=== PATIENT | female | born 1950 | race Caucasian/White ===

== ENCOUNTER 2021-11-19 07:26 | Observation (INO) ==
--- NOTE | 2021-10-24 14:11 | History & Physical Report ---
Date of Service October 24, 2021 date of surgery: 11/19/21 Procedure: Left Total Knee Arthroplasty Surgeon: Jalen Snow Assessment & Plan (1) Arthritis of knee, left: Plan: presents w increased pain in her left knee, her xrays were reviewed showing advancing djd of her left knee, she has had prior right knee TKA and revision TKA several years later. we discussed risks and benefits of procedure, she would like to proceed with stephanie block Left TKA at [facility]. will plan on OPJ program, will schedule for Iovera treatment 2 weeks prior to her surgery. her daughter will stay with her for several days after her surgery as well. The risks and benefits have been discussed including, but not limited to, risk of infection, nerve injury, stiffness, loss of motion, failure to improve, etc. Reasonable outcomes and options of treatment were discussed. An explanation of appropriate alternatives to the procedure that may be advantageous were discussed and their risks and benefits, as well as the risks and benefits of not proceeding with treatment. I offered to answer any additional inquiries concerning the treatment involved. All the patient's questions were answered. The patient is agreeable, understanding of the treatment plan and alternatives, and wishes to proceed with the treatment plan. History of Present Illness Chief Complaint: left knee pain Primary Care Provider: Rishabh M. Nely Rivera is a 71 year old female who complains of left knee pain, presents for pre-op evaluation prior to a left total knee replacement by Dr Snow at [facility]. she complains of pain, decreased range of motion and stiffness in the left knee. Currently the patient states that the symptoms are moderate-severe and is de scribed as aching, sharp and throbbing. pain is rated as 7/10. Her symptoms are aggravated by ascending stairs, daily activities, first steps while awake walking. Prior NSAIDs include IBU and Aleve. she has been treated with previous Iovera injection. Allergies Allergy/AdvReac Type Severity Reaction Status Date / Time ciprofloxacin [Cipro] Allergy Intermediate HANDS Verified 07/17/21 13:19 BURNING RED, RASH, HANDS PEELED SKIN Home Medications Medication Instructions Recorded Confirmed Type alendronate 70 mg tablet 70 mg PO WK 07/17/21 07/17/21 History alprazolam 0.5 mg tablet 0.5 mg PO HS 07/17/21 07/17/21 History ascorbic acid 7.5 mg-vit E 7.5 1 tab PO BID 07/17/21 07/17/21 History unit-biotin 1,250 mcg chewable tablet (Hair,Skin,Nails with Biotin) betamethasone dipropionate 0.05 % 1 applic TOPICAL DAILY PRN 07/17/21 07/17/21 History topical cream calcium carbonate 600 mg-vitamin 1 tab PO BID 07/17/21 07/17/21 History D3 10 mcg (400 unit) tablet (Calcium 600 + D(3)) conjugated estrogens 0.625 mg/gram 0.625 mg VAGINAL 3XWK 07/17/21 07/17/21 History vaginal cream (Premarin) hydrocortisone 0.25 % topical cream 1 applic TOPICAL DAILY PRN 07/17/21 07/17/21 History ibuprofen 400 mg tablet 400 mg PO QAM 07/17/21 07/17/21 History latanoprost (PF) 0.005 % eye drops 1 drp OPHTHALMIC (EYE) HS 07/17/21 07/17/21 History levothyroxine 75 mcg tablet 75 mcg PO QAM 07/17/21 07/17/21 History rrfcbodunxkz-Ey-usfz-minerals 18 1 tab PO QAM 07/17/21 07/17/21 History mg-0.4 mg tablet Past Med/Surg History Medical History Frequent UTI Glaucoma bilt eyes Hypothyroidism Insomnia due to anxiety and fear Osteoarthritis Osteoporosis Surgical History History of arthroscopy of right knee History of breast biopsy benign History of colonoscopy History of hand surgery left and right index fingers History of partial hysterectomy History of repair of right rotator cuff History of tonsillectomy and adenoidectomy History of total right knee replacement (TKR) x2 History of wisdom tooth extraction Family History Other No family history of adverse response to anesthesia Social History Smoking Status: Never smoker Second Hand Exposure: No; Hx Alcohol Use: Yes Hx Substance Use: No Preferred Language: Ukrainian Communication Ability: Effective 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 Beliefs That Will Affect Care: None Current Living Situation: Alone Feels Safe at Home: Yes Assistive Devices: Glasses Review of Systems Review of Systems: All systems reviewed & are unremarkable except as noted in HPI & below Constitutional: no fever, no chills and no sweats Respiratory: no cough and no dyspnea Cardiovascular: no chest pain, no dyspnea and no orthopnea Gastrointestinal: no abdominal pain, no nausea and no vomiting Musculoskeletal: as per Subjective / HPI Physical Exam Physical Exam: HT: 5ft 6in WT: 84.9kg BP: 122/76 Constitutional: WD/WN, vitals as above no acute distress Respiratory: normal respiratory effort, lungs clear to auscultation no respiratory distress, no labored breathing and does not use accessory muscles Cardiovascular: RRR, no murmur, no edema Gastrointestinal (Abdomen): normal bowel sounds, soft, nontender, no hepatosplenomegaly Musculoskeletal: Knee: + knee abnormal to inspection (Left knee: ), + effusion (+1 effusion), + surgical incision (well healed portals), + limited ROM of knee (ROM 0/3/110), + knee ROM with crepitation, + joint line tenderness (medial joint line) and + Leslye's sign positive; no deformity, no skin erythema, no ecchymosis, no valgus laxity, no varus laxity, anterior drawer test negative, Kelley's sign negative and pivot shift test negative Results & Data Results & Data ([facility]) Diagnostic Findings Left Knee X-ray: left knee series confirm advanced degenerative changes to the left knee, greatest medial compartments and patellofemoral joint, showing joint space narrowing, osteophyte formation and subchondral sclerosis. no acute bony pathology noted.
--- NOTE | 2021-11-11 16:10 | Anesthesiology Consultation ---
Date of Service November 11, 2021 Assessment & Plan (1) Encounter for pre-operative examination: - COVID screening: Per assessment on 10/28: No known COVID-19 positive contacts or current COVID-19 related symptoms. Travel screen negative. Patient vaccinated. Surgeon arranging preop COVID testing. Awaiting results. - Chronic LBBB: Patient was originally scheduled for 08/20/21. Preop EKG done 07/19/21 showed LBBB/cannot r/o septal infarct. Message sent to PCP for comment. Per PCP response, ""...had LBBB in 2007 and negative nuclear stress test at that time..." Preop EKG[facility]cardiac [facility] with Dr. Arteaga 07/2021 in which patient was felt to be acceptable risk for surgery without further cardiac evaluation and/or testing from his perpective. Chart Review Chart Review: Acceptable Risk for Surgery (pending evlauation AM DOS) and Patient NOT seen in Pre Admission Testing History Surgery Operation Date: 11/19/21 09:25 Proposed Procedures p Left Total Knee Arthroplasty - Jalen Snow DO Height/Weight Height: 5 ft 6 in Weight: 81.647 kg Allergies Allergy/AdvReac Type Severity Reaction Status Date / Time ciprofloxacin [Cipro] Allergy Intermediate HANDS Verified 10/28/21 10:25 BURNING RED, RASH, HANDS PEELED SKIN Medications Home Medications Medication Instructions Recorded Confirmed Last Taken alendronate 70 mg tablet 70 mg PO WK 07/17/21 10/28/21 Unknown alprazolam 0.5 mg tablet 0.5 mg PO HS 07/17/21 10/28/21 Unknown ascorbic acid 7.5 mg-vit E 7.5 1 tab PO BID 07/17/21 10/28/21 Unknown unit-biotin 1,250 mcg chewable tablet (Hair,Skin,Nails with Biotin) betamethasone dipropionate 0.05 % 1 applic TOPICAL DAILY PRN 07/17/21 10/28/21 Unknown topical cream calcium carbonate 600 mg-vitamin 1 tab PO BID 07/17/21 10/28/21 Unknown D3 10 mcg (400 unit) tablet (Calcium 600 + D(3)) conjugated estrogens 0.625 mg/gram 0.625 mg VAGINAL WK 07/17/21 10/28/21 Unknown vaginal cream (Premarin) hydrocortisone 0.25 % topical cream 1 applic TOPICAL DAILY PRN 07/17/21 10/28/21 Unknown ibuprofen 400 mg tablet 400 mg PO QAM 07/17/21 10/28/21 Unknown latanoprost (PF) 0.005 % eye drops 1 drp OPHTHALMIC (EYE) HS 07/17/21 10/28/21 Unknown levothyroxine 75 mcg tablet 75 mcg PO QAM 07/17/21 10/28/21 Unknown vmltrstwpdfy-Ya-jwjy-minerals 18 1 tab PO QAM 07/17/21 10/28/21 Unknown mg-0.4 mg tablet clobetasol-emollient 0.05 % 1 applic TOPICAL 2XWK 10/28/21 10/28/21 Unknown topical cream d-mannose 500 mg capsule 500 mg PO QAM 10/28/21 10/28/21 Unknown Past Medical History Medical History Frequent UTI No current issues Glaucoma B/L eyes Hypothyroidism Insomnia due to anxiety and fear Osteoarthritis Osteoporosis Past Family History Family History Other No family history of adverse response to anesthesia Past Surgical History Surgical History History of arthroscopy of right knee History of breast biopsy benign History of colonoscopy History of hand surgery left and right index fingers History of partial hysterectomy History of repair of right rotator cuff History of tonsillectomy and adenoidectomy History of total right knee replacement (TKR) x2 History of wisdom tooth extraction Social History Smoking Status: Never smoker Do You Dip or Chew Tobacco: No Hx Alcohol Use: Yes Alcohol type: wine and hard liquor alcohol intake frequency: holidays/special occasions only Hx Substance Use: No substance use type: does not use Testing Laboratory Results 10/22/21 WBC 5.60 H/H 14.7/45.5 PLATELETS 235 SODIUM 140 POTASSIUM 4.1 CHLORIDE 106 CO2 27.9 BUN 16.7 CREATININE 0.81 GLUCOSE 86 PT 11.2 PTT 32.0 INR 0.99 UA negative HGBA1C 5.2% Electrocardiogram Date: 07/19/21 Normal sinus rhythm at 79 bpm. LBBB. Cannot rule out septal infarct (cited on or before 07/19/2021). No significant change compared to 02/17/2014 per home office claims examiner review. Blood stress test was done 08/19/2007 for evaluation of left bundle branch block. Per report, there are changes to the septum most likely related to artifact. There are no ischemic changes. There is decreased wall motion of the septum. The remaining findings are normal. Chest X-Ray Date: 07/19/21 FINDINGS: PA and lateral chest radiographs are compared to study dated 02/17/2014. The cardiomediastinal silhouette is unremarkable noting atherosclerotic calcification of the thoracic aorta. The lungs and pleural spaces are clear. There is no pneumothorax. The skeletal structures are osteopenic. The bony thorax appears intact. IMPRESSION: No active disease in the chest. Stress Test Date: 08/19/07 Per report, there are changes to the septum most likely related to artifact. There are no ischemic changes. There is decreased wall motion of the septum. The remaining findings are normal. EF 59%.
[~2021-11-19 07:26] MED LIST: ACETAMINOPHEN 500 MG TAB PO SCH; BUPIVACAINE 0.25% 30 ML VIAL ONE; BUPIVACAINE 0.5 % 5 MG/1 ML PF 10ML VIAL ONE; CeleBREX 200 MG CAP PO SCH; FAMOTIDINE 20 MG TAB PO SCH; GABAPENTIN 300 MG CAP PO SCH; LR 500ML BOLUS, THEN 15ML/HR IV SCH; METOCLOPRAMIDE HCL 10 MG TABLET PO SCH; ROPIVACAINE 0.5% HCL/PF 150 MG, BUPIVACAINE 0.75% MPF 20 ML, EPINEPHrine 30MG/30ML (OR ... INSTIL SCH; TRANEXAMIC ACID 1,000 MG **IV Intra-op IV SCH; TRANEXAMIC ACID 1,000 MG **IV Pre-op IV SCH; VANCOMYCIN HCL 1,250 MG in SODIUM CHLORIDE 0.9% 250 ML IV SCH; dexAMETHasone 4 MG TAB PO SCH; oxyCODONE HCL 10 MG TABCR (OxyCONTIN) PO SCH
[2021-11-19] MEDS ORDERED: fentaNYL citrate 100 MCG/2 ML VIAL ONE (07:54)
[2021-11-19] MEDS ORDERED: PROPOFOL IV EMULSION 10 MG/ML 20 ML VIAL IV ONE (07:54)
[2021-11-19] MEDS ORDERED: LIDOCAINE 2% 2 ML VIAL/AMP(20MG/ML) INFIL ONE (07:54)
[2021-11-19] MEDS ORDERED: ePHEDrine sulfate 50 MG/ML SYR ONE (07:54)
[2021-11-19] MEDS ORDERED: MIDAZOLAM HCL 1 MG/ML 2ML VIAL ONE (07:54)
--- NOTE | 2021-11-19 08:31 | History & Physical Bridge Note ---
Date of Service November 19, 2021 History & Physical Bridge Note I have examined the patient, reviewed the History & Physical and in the interval since the performance of the History & Physical I have noted the following changes of clinical significance: no changes noted
[2021-11-19] MEDS ORDERED: ORTHO JOINT ANESTHETIC ONE (09:01)
[2021-11-19] MEDS ORDERED: ATROPINE SULFATE 0.1 MG/ML 10ML SYR IV PRN (10:25)
[2021-11-19] MEDS ORDERED: ePHEDrine sulfate 50 MG/ML AMP IV PRN (10:25)
[2021-11-19] MEDS ORDERED: ONDANSETRON INJ 2 MG/ML 2 ML VIAL IV PRN ×2 (10:25→12:23)
--- NOTE | 2021-11-19 11:02 | Operative Report ---
Post Operative Report Pre & Post Diagnosis Operation Date: 11/19/21 09:35 Pre-Op Diagnosis: Left Knee Osteoarthritis Post-Op Diagnosis: Left Knee Osteoarthritis I identified the patient and participated in the time-out.: Yes Procedure Operation Date: 11/19/21 09:35 Actual Procedures p Left Total Knee Arthroplasty(Left) utilizing [employer] persona patient matched femur 9 narrow tibia EE polyten medial constrained patella 31 oval Jalen Snow DO Surgeon Jalen Snow DO Street Light Servicer VINICIO Mota Estimated Blood Loss 5 Findings Consistent with Post-Op Diagnosis Patient presents with left knee severe DJD tricompartmentally with subchondral sclerosis marginal osteophytes subchondral cystic changes valgus alignment 10 degree flexion contracture and moderate to large effusion Specimens Bone and cartilage Drains Medium bore Hemovac Anesthesia Type MAC Spinal Regional Complications none Disposition Accompanied Patient To Recovery: No Disposition: Recovery Room Indications Patient presents with severe end-stage tricompartmental degenerative joint disease after failed attempted conservative management clinic physical therapy anti-inflammatories relative rest activity modification patient is also had anterior articular corticosteroid and viscosupplementation the above intraoperative findings were noted Description of Procedure After proper prepping and draping of the left lower extremity anterior midline incision was made over the region of the extensor extensor mechanism after meticulous hemostasis was obtained and maintained in subcutaneous tissues a medial parapatellar incision was made The patella was subluxed lateralward the medial lateral gutter were cleaned from any hypertrophic synovitis and scar tissue of the distal femoral block was placed and the distal femoral osteotomy cut was made subsequently the chamfers anterior and posterior osteotomy cuts w ere made utilizing the 4-in-1 block the tibia was subsequently subluxed anteriorward medial and ateral meniscal remnants were excised in their entirety remnants of the anterior and posterior cruciate ligaments were excised in their entirety excellent exposure of the proximal tibia was obtained the tibial osteotomy guide was placed on the proximal tibial osteotomy cut was made once again the knee was irrigated with copious amounts of sterile saline solution the patella was subsequently everted lateralward thickened scar tissue around the patella was removed the patella was subsequently cut utilizing a freehand technique and was drilled prepared for final preparation and placement of patella socially flexion-extension gaps were checked and the equal and symmetric trials were placed to the appropriate femoral and tibial trials with poly-spacer being placed for equal flexion and extension gaps and full range of motion including extension to 0 and flexion to 140 the trial components after having been taken to recovery range of motion was subsequently removed meticulous hemostasis was obtained and maintained subsequently a knee block injection of joint cocktail including ropivacaine 0.5% 150 mg. Bupivacaine 0.5% epinephrine 1-200,030 mL's toradol 30 mg dexamethasone 4 mg ketamine 10 mg clonidine 100 micrograms normal saline solution 30 mg was infiltrated into the soft tissues of the posterior knee medial lateral gutters and periosteal synovium special attention was paid to protect neurovascular structures at all times subsequently trial components having been removed the knee was irrigated with sterile saline solution. debris was removed the proximal tibia was subsequently prepared and was made ready for the placement of the tibial component tibial component was also cemented and tamped into position the femoral component was subsequently placed and cemented in the position the patellar component was subsequently cemented in position because hemostasis once again obtained and maintained wound having been thoroughly irrigated with debridement and debridement lavage was performed as well as a medial parapatellar incision closed with #1 Vicryl in interrupted fashion subcutaneous was closed with #2 Vicryl skin was closed with skin clips. PA-C was necessary for prepping and drapping as well as wound closure of deep fascia Sub cutaneous tissue and skin and was necessary for the case. A sterile compressive dressing was placed patient was taken to recovery in stable condition of report dictated by Edy I attest to the content of the Intraoperative Record and any orders documented therein. Any exceptions are noted below.Due to the complex nature of the procedure, the entire surgery was performed with the operational assistance of VINICIO Matamoros The mail handler assistant, under direct supervision, was involved in the actual performance of all aspects of the surgical procedure including hemostasis, tissue retraction and incision, instrument management, patient positioning, and wound closure. I attest to the content of the Intraoperative Record and any orders documented therein. Any exceptions are noted below.
--- NOTE | 2021-11-19 12:06 | XRay Report ---
TWO VIEWS LEFT KNEE CLINICAL HISTORY: Postoperative examination. FINDINGS: AP and crosstable lateral portable views of the left knee are obtained. A left knee arthrop lasty is in near anatomic alignment. There has been undersurface remodeling of the patella. No acute fracture is seen. There are expected postoperative changes around the knee including a surgical drai n, soft tissue edema, and subcutaneous gas. IMPRESSION: Expected postoperative changes status post left knee arthroplasty. No acute fracture is s een. ACT 112: Negative or not required by law. Electronically signed by: Woodrow Ansari M.D. 11/19/2021 12:03 PM
[2021-11-19] MEDS ORDERED: HYDROmorphone INJ 1 MG/ML SYRINGE IV PRN (12:23)
[2021-11-19] MEDS ORDERED: diphenhydrAMINE Capsule 25 MG CAP PO PRN (12:23)
[2021-11-19] MEDS ORDERED: MAGNESIUM HYDROXIDE SUSP 30 ML UDC PO PRN (12:23)
[2021-11-19] MEDS ORDERED: oxyCODONE HCL IR 5 MG TAB (IMMEDIATE RELEASE) PO PRN (12:23)
[2021-11-19] MEDS ORDERED: bisacodyL 10 MG SUPP PR PRN (12:23)
[2021-11-19] MEDS ORDERED: NALOXONE HCL 0.4 MG/1 ML VIAL/CARP IV PRN (12:23)
[2021-11-19] MEDS ORDERED: METOCLOPRAMIDE HCL INJ 5 MG/ML 2 ML VIAL IV PRN (12:23)
[2021-11-19] MEDS ORDERED: HYDROCORTISONE TOP PRN (12:23)
--- NOTE | 2021-11-19 12:40 | Anesthesiology Progress Note ---
Date of Service November 19, 2021 Anesthesia Post Procedure Vital Signs Vital Signs: Temp Pulse Pulse Resp BP BP Pulse Ox 11/19/21 12:21 36.4 C L 92 H 16 112/73 95 11/19/21 12:10 36.3 C L 90 18 113/62 93 11/19/21 12:00 93 H 16 110/62 97 11/19/21 11:50 88 17 99/71 L 99 11/19/21 11:40 36.9 C 97 H 15 102/50 L 99 11/19/21 08:10 36.4 C L 90 20 146/83 H 99 Transfer of Care Handoff Completed per policy Notes Mental Status: alert / awake / arousable Patient Amnestic to Procedure: Yes Nausea / Vomiting: adequately controlled Pain: adequately controlled Airway Patency, RR, SpO2: stable & adequate BP & HR: stable & adequate Hydration State: stable & adequate Neuraxial Anesthesia: was administered and sensory block is resolving Anesthetic Complications: no major complications apparent and Pt Satisfied with anesthetic care
[2021-11-19] MEDS ORDERED: BETAMETHASONE DIP AUG (DIPROLENE) 0.05% CR 15 GM TUBE EXT PRN (13:19)
[2021-11-19] MEDS: SODIUM CHLORIDE 0.9% 1000ML 1,000 ML IV SCH ×2 (13:34→23:51)
[2021-11-19] MEDS: KETOROLAC TROMETHAMINE 15 MG/ML VIAL IV SCH ×2 (14:28→18:35)
[2021-11-19] MEDS: ACETAMINOPHEN 500 MG TAB PO SCH ×2 (15:15→21:23)
[2021-11-19] MEDS: ceFAZolin 2000MG 2,000 MG/15 ML SYR IV SCH (18:38)
[2021-11-19] MEDS ORDERED: SENNA 8.6 MG TAB PO SCH (21:00)
[2021-11-19] MEDS ORDERED: ALPRAZolam 0.5 MG TABLET PO SCH (21:00)
[2021-11-19] MEDS ORDERED: LATANOPROST 0.005% OP SOLN 2.5 ML BTL OP SCH (21:00)
[2021-11-19] MEDS: DOCUSATE SODIUM 100 MG CAP PO SCH (21:25)
[2021-11-19] MEDS: CALCIUM CARBONATE 1250MG TAB PO SCH (21:26)
[2021-11-19] MEDS: ASPIRIN 81 MG ECTAB PO SCH (21:26)
[2021-11-19] MEDS: CHOLECALCIFEROL 400 UNITS 10 MCG TAB PO SCH (21:27)
[2021-11-20] MEDS: KETOROLAC TROMETHAMINE 15 MG/ML VIAL IV SCH ×2 (00:01→05:45)
[2021-11-20] MEDS: ceFAZolin 2000MG 2,000 MG/15 ML SYR IV SCH (02:13)
[2021-11-20] MEDS: ACETAMINOPHEN 500 MG TAB PO SCH ×2 (05:46→13:46)
[2021-11-20] MEDS ORDERED: LEVOTHYROXINE SODIUM 75 MCG TABLET PO SCH (06:30)
[2021-11-20 06:33] LABS: Hematocrit (blood only) 35.9 % (37-47); Mean Corpuscular Hemoglobin 31.1 pg (25-34); Mean Corpuscular Hgb Conc 33.4 g/dL (32-36); Platelet Count 211 K/uL (130-400); RDW Coefficient of Variation 12.7 % (11.5-14.5); Red Blood Count 3.86 M/uL (4.2-5.4); White Blood Count 13.93 K/uL (4.8-10.8)
[2021-11-20 07:04] LABS: Calcium 8.8 mg/dl (8.5-10.1); Creatinine Clr Calc Pharmacy 92.4 ml/min; Est GFR (African American) 106.5 ml/min; Est GFR (Non-African American) 91.9 ml/min; Potassium 4.6 mmol/L (3.5-5.1)
--- NOTE | 2021-11-20 08:04 | Orthopedic Progress Note ---
Date of Service November 20, 2021 Assessment & Plan (1) Arthritis of knee, left: Plan: Postop day 1 status post left total knee arthroplasty. PT/OT protocols. Weightbearing as tolerated. DVT prophylaxis-aspirin p.o. twice daily, Nidhi, LIZZETH min. Pain management as written. DC plans-is planning for home health services upon discharge. We will see how she progresses today with her physical therapy. Possible discharge to home this afternoon. Admission and Anticipated Discharge Date Admission Date: November 19, 2021 Subjective Postop day 1 Patient is sitting up in her bed awake and alert. No complaints this morning. Pain is controlled. She denies shortness of breath, chest pain, lightheadedness. Physical Exam Physical Exam: Dressings are clean, dry, and intact. Calves are soft and nontender. Neurovascular is intact. Toes are mobile. She has good dorsiflexion and plantarflexion of her left foot. She had 150 cc out of her Hemovac drain from the previous shift. Results & Data ([facility]) Vital Signs (Past 12 Hours) Vital Signs Temp Pulse Resp BP Pulse Ox 11/20/21 02:08 36.5 C 81 16 106/66 99 11/19/21 22:32 36.6 C 80 16 107/66 97 Laboratory Results Laboratory Results WBC 13.93 K/uL (4.8-10.8) H 11/20/21 06:05 RBC 3.86 M/uL (4.2-5.4) L 11/20/21 06:05 Hgb 12.0 g/dL (12.0-16.0) 11/20/21 06:05 Hct 35.9 % (37-47) L 11/20/21 06:05 MCV 93.0 fL (80-100) 11/20/21 06:05 MCH 31.1 pg (25-34) 11/20/21 06:05 MCHC 33.4 g/dL (32-36) 11/20/21 06:05 RDW Std Deviation 43.0 fL (36.4-46.3) 11/20/21 06:05 RDW Coeff of Vicki 12.7 % (11.5-14.5) 11/20/21 06:05 Plt Count 211 K/uL (130-400) 11/20/21 06:05 MPV 10.0 fL (7.4-10.4) 11/20/21 06:05 Sodium 141 mmol/L (136-145) 11/20/21 06:05 Potassium 4.6 mmol/L (3.5-5.1) 11/20/21 06:05 Chloride 112 mmol/L (98-107) H 11/20/21 06:05 Carbon Dioxide 24 mmol/L (21-32) 11/20/21 06:05 Anion Gap 5 (3-11) 11/20/21 06:05 BUN 14 mg/dl (6-23) 11/20/21 06:05 Creatinine 0.61 mg/dl (0.6-1.2) 11/20/21 06:05 Est Cr Clr Drug Dosing 92.4 ml/min 11/20/21 06:05 Est GFR ( Amer) 106.5 ml/min 11/20/21 06:05 Est GFR (Non-Af Amer) 91.9 ml/min 11/20/21 06:05 BUN/Creatinine Ratio 23.0 (10-20) H 11/20/21 06:05 Glucose 111 mg/dl (70-99(Fasting)) H 11/20/21 06:05 Calcium 8.8 mg/dl (8.5-10.1) 11/20/21 06:05 SARS-CoV-2, RNA, NAAT NEGATIVE (NEGATIVE) 11/19/21 07:45 Blood Type O Positive 11/19/21 07:44 Antibody Screen NEGATIVE 11/19/21 07:44 Impressions Knee X-Ray 11/19/21 11:45 TWO VIEWS LEFT KNEE CLINICAL HISTORY: Postoperative examination. FINDINGS: AP and crosstable lateral portable views of the left knee are obtained. A left knee arthroplasty is in near anatomic alignment. There has been undersurface remodeling of the patella. No acute fracture is seen. There are expected postoperative changes around the knee including a surgical drain, soft tissue edema, and subcutaneous gas. IMPRESSION: Expected postoperative changes status post left knee arthroplasty. No acute fracture is seen. ACT 112: Negative or not required by law. Electronically signed by: Woodrow Ansari M.D. 11/19/2021 12:03 PM
[2021-11-20] MEDS ORDERED: CeleBREX 200 MG CAP PO SCH (09:00)
[2021-11-20] MEDS ORDERED: MULTIVITAMIN TAB PO SCH (09:00)
[2021-11-20] MEDS: DOCUSATE SODIUM 100 MG CAP PO SCH (09:01)
[2021-11-20] MEDS: CHOLECALCIFEROL 400 UNITS 10 MCG TAB PO SCH (09:02)
[2021-11-20] MEDS: ASPIRIN 81 MG ECTAB PO SCH (09:02)
[2021-11-20] MEDS: CALCIUM CARBONATE 1250MG TAB PO SCH (09:03)
--- NOTE | 2021-11-20 13:23 | Discharge Summary ---
Date of Service date of discharge: November 20, 2021 date of admission: 11/19/21 Admission HPI Per Admitting Provider Nicole is a 71 year old female who complains of left knee pain, presents for pre-op evaluation prior to a left total knee replacement by Dr Snow at [facility]. she complains of pain, decreased range of motion and stiffness in the left knee. Currently the patient states that the symptoms are moderate-severe and is described as aching, sharp and throbbing. pain is rated as 7/10. Her symptoms are aggravated by ascending stairs, daily activities, first steps while awake walking. Prior NSAIDs include IBU and Aleve. she has been treated with previous Iovera injection. Principal Diagnosis left knee arthritis Discharge Exam Musculoskeletal left knee: NVDI, calf SNT, negative verito sign. DP palpable, able to wiggle toes/ankle movement without difficulty. VICKEY dressing clean dry and intact. expected post-operative bruising noted. Discharge Data Allergies Allergy/AdvReac Type Severity Reaction Status Date / Time ciprofloxacin [Cipro] Allergy Intermediate HANDS Verified 10/28/21 10:25 BURNING RED, RASH, HANDS PEELED SKIN Procedures Performed Operation Date: 11/19/21 09:35 Actual Procedures p Left Total Knee Arthroplasty(Left) - Jalen Snow DO Ordered Studies 11/19/21 05:00 US - OR guided needle placemen Routine Hospital Course (1) Arthritis of knee, left: Postop day 1 status post left total knee arthroplasty. PT/OT protocols. Weightbearing as tolerated. DVT prophylaxis-aspirin p.o. twice daily, SCDs, LIZZETH min. Pain management as written. DC plans-is planning for home health services upon discharge. We will see how she progresses today with her physical therapy. Possible discharge to home this afternoon. Total Time Total Time Spent Total Time Spent (In Minutes): 20 Discharge Plan Discharge Items Patient Disposition: Home - Home Health Services Reason For Visit: Left Knee Osteoarthritis Discharge Diagnosis: LEFT TOTAL KNEE REPLACEMENT Activity: Per Instructions section Lifting: Wait until after follow-up appointment Weightbearing: Left weightbearing Weightbearing Comment: WBAT WITH WALKER Non-emergency contact: Surgeon Call non-emergency contact if: you have any medication questions, your pain is not controlled, your temperature is above 101, your wound has increased redness, your wound has increased drainage and your wound pain has increased Follow-up/Referrals: Jalen Snow DO [Surgeon] - (Follow-up in 14 days for your first postoperative visit.) Rishabh Mckay DO [Primary Care Provider] - Diet: Regular Addtl Attending Provider Instructions: ACTIVITY RECOMMENDATIONS: SELF CARE INSTRUCTIONS AFTER TOTAL KNEE REPLACEMENT A. You may need to continue a physical therapy program after discharge from the hospital. There are several options available to you. Your doctor will assist you in selecting the best one for you. 1. An out-patient facility 2 to 3 times a week for therapy or home therapy. 2. Continue working on all exercises taught to you in the hospital. Your goals should be to increase bending of your knee to 90 degrees and beyond and to fully straighten your knee. B. You may progress at your own pace from walking with a walker or crutches to a cane; then to no assistive devices. C. Make walking a part of your daily routine. Be up as much as comfortable with rest periods throughout the day. Rest with leg elevation is very important. Use the ice wrap frequently for the first 3-4 weeks. D. There are no restrictions on activities. You may ride in a car, shop, participate in power press tender and all social activities. E. Wear the long elastic stockings (LIZZETH hose) 20 hours a day for 2 weeks after surgery. They can be removed several times a day for laundering and for a bath. F. You may shower, no tub baths until cleared by your doctor. SPECIAL CARE INSTRUCTIONS: VERY IMPORTANT TO READ AND REVIEW A. There are a few signs you need to watch for after you are home. Call [facility] if you notice any of the followin. Increased severe knee pain. Some pain is expected especially when you exercise. 2. Increased swelling in your leg or knee; pain or swelling of the calf muscle in either lower leg. 3. Any fluid drainage from the incision. 4. Shortness of breath or chest pain. B. Please call [facility] at if you have any concerns or questions about your operation or recovery. The doctor or his nurse will return your call promptly. C. You must take antibiotics before dental work, bladder, bowel or other surgery. Your doctor will provide you with a permanent care to carry describing this precaution. IMPORTANT: * REMEMBER TO TAKE ASPIRIN, 81 MG, TWICE DAILY FOR 4 WEEKS UNLESS OTHERWISE DIRECTED. THIS IS YOUR BLOOD THINNER. * HIGH RISK PATIENTS MAY BE PRESCRIBED A STRONGER BLOOD THINNER. THIS WILL BE PROVIDED AT DISCHARGE. * CALL IF INCREASED PAIN, REDNESS, DRAINAGE OR FEVER GREATER THAT 101. * WEAR LIZZETH HOSE 20 HOURS PER DAY FOR 2 WEEKS. * VICKEY Dressing- This is a large suction dressing covering your incision. This will help pull any excess drainage from the wound and allow your incision to heal properly. You may shower with this if you can keep the unit outside of the shower. If any bleeding or leakage is noted please call your doctor's office. This will remain on your incision for 7 days and then should be removed. This can be done yourself or by the home nursing staff if applicable. The entire unit is disposable once removed. Once removed, keep incision clean and dry. If redness or drainage is noted, please call your surgeon. ONCE VICKEY IS REMOVED, FOLLOW THESE INSTRUCTIONS:. DERMABOND Prineo- This is a mesh tape dressing that is covered with glue. It should remain in place until the incision is properly healed, usually 10-14 days. This dressing is designed to naturally slough off. You may trim the excess mesh tape as it peels off. Incision may be briefly wet in a shower. Dry immediately by blotting with a clean, dry towel. Do not bath or swim until instructed by your doctor. Do not scratch, rub, or pick at the dressing. Do not apply any topical ointments or lotions until dressing is completely removed and/or instructed by your doctor. There may be a small piece of suture material at one end of your incision. Do not pull or trim this. If it is bothersome or catching on clothing, you may cover it with a band-aid. IF INCISION IS LEAKING THROUGH DRESSING, CALL THE OFFICE . FOLLOW UP VISIT: If appointment is not already scheduled: Please call [facility] to make a follow-up appointment for 2 weeks after your surgery at . Stand-Alone Forms: My [employer], Smoking Cessation Medications and DC Order Prescriptions: New celecoxib [Celebrex] 200 mg Capsule 200 mg PO BID 14 Days Qty: 28 RF: 0 aspirin 81 mg Tablet,Delayed Release (Dr/Ec) 81 mg PO BID 30 Days Qty: 60 RF: 0 acetaminophen [Tylenol Extra Strength] 500 mg Tablet 1,000 mg PO Q8 14 Days Qty: 84 RF: 0 polyethylene glycol 3350 [Miralax] 17 gram powder in packet 17 g PO DAILY PRN (Reason: constipation) Qty: 5 RF: 0 cefadroxil 500 mg capsule 500 mg PO BID Qty: 28 RF: 1 oxycodone 5 mg Tablet 5 mg PO Q4H MDD 6 PRN (Reason: pain) Qty: 30 RF: 0 Continued alendronate 70 mg Tablet 70 mg PO WK RF: 0 levothyroxine 75 mcg Tablet 75 mcg PO QAM RF: 0 alprazolam 0.5 mg Tablet 0.5 mg PO HS RF: 0 Premarin 0.625 mg/gram Cream 0.625 mg VAGINAL WK RF: 0 hydrocortisone 0.25 % Cream 1 applic TOPICAL DAILY PRN (Reason: face) RF: 0 betamethasone dipropionate 0.05 % Cream 1 applic TOPICAL DAILY PRN (Reason: psorasis) RF: 0 aoloffiwvlag-Ec-svjr-minerals 18-0.4 mg Tablet 1 tab PO QAM RF: 0 calcium carbonate-vitamin D3 [Calcium 600 + D(3)] 600 mg-10 mcg (400 unit) Tablet 1 tab PO BID RF: 0 Hair, Skin, Nails with Biotin 7.5-7.5-1,250 mg-unit-mcg Tablet,Chewable 1 tab PO BID RF: 0 latanoprost (PF) 0.005 % Drops 1 drp OPHTHALMIC (EYE) HS RF: 0 clobetasol-emollient 0.05 % Cream 1 applic TOPICAL 2XWK RF: 0 d-mannose 500 mg Capsule 500 mg PO QAM RF: 0 Discontinued ibuprofen 400 mg Tablet 400 mg PO QAM RF: 0 Discharge Orders: Discharge Order (Routine); Ordered 11/20/21 Ordered By: Jose Eduardo Jimenes/Other Patient Handouts: Knee Osteoarthritis Admission Data Admit Date/Time: 11/19/21 11:45 Attending Provider: Jalen Snow Admit Provider: Jalen Snow Primary Care Provider: Rishabh Mckay Other Interventions: Discharge Summary Assessment (RN) Last Done: 11/20/21 12:00
[2021-11-22] MEDS ORDERED: ALENDRONATE SODIUM 70 MG TAB PO SCH (07:00)
== END 2021-11-20 14:17 | disposition home health service (06) ==
LOC: 3E 07:26 → ASU 07:26